=== PATIENT | female | born 1980 | race Hispanic/Latino ===

== ENCOUNTER 2017-02-10 06:57 | Day surgery (SDC) | payer SELFPAY ==
[2017-02-10 07:12] VITALS: BMI 25.3
[2017-02-10] MEDS ORDERED: Bupivacaine 0.5% Inj(30mL) ONE (07:27)
[2017-02-10] MEDS ORDERED: ceFAZolin IV 1 gm in Dextrose 2 GM/100 ML BAG IVPB ONE (07:27)
[2017-02-10] MEDS ORDERED: Silver Nitrate Topical - Stick ONE (07:28)
[2017-02-10 07:40] LABS: BASO % 0.8 % (0.0-2.0); EOS # 0.1 K/uL (0.0-0.7); HEMOGLOBIN 13.5 g/dL (12.0-16.0); LYMPH # 2.6 K/uL (1.0-4.3); LYMPH % 45.9 % (20.0-40.0); MEAN CELL VOLUME 92.3 fl (81.0-99.0); MEAN CORPUSCULAR HEMOGLOBIN 30.6 pg (27.0-31.0); MEAN CORPUSCULAR HGB CONC 33.2 g/dL (33.0-37.0); MEAN PLATELET VOLUME 8.6 fl (7.2-11.7); MONO # 0.3 K/uL (0.0-0.8); NEUT # 2.6 K/uL (1.8-7.0); NEUT % 45.3 % (50.0-75.0); NRBC % 0.1 % (0.0-0.0); RBC 4.41 Mil/uL (3.80-5.20); RED CELL DISTRIBUTION WIDTH 14.9 % (11.5-14.5); WHITE BLOOD COUNT 5.8 K/uL (4.8-10.8)
[2017-02-10] MEDS ORDERED: Lactated Ringer's 1,000 ML IV ONE ×3 (08:00→10:15)
[2017-02-10 08:05] VITALS: RESP 18
[2017-02-10] MEDS ORDERED: Propofol 10 mg/ml Inj (20 ML) ONE (08:18)
[2017-02-10] MEDS ORDERED: Lidocaine 4% (Laryng-O-Jet) Kit MM ONE (08:19)
[2017-02-10] MEDS ORDERED: Succinylcholine 200 mg/10 ml Inj IV ONE (08:19)
[2017-02-10] MEDS ORDERED: Rocuronium 10 mg/ml (5 ml) ONE (08:19)
[2017-02-10] MEDS ORDERED: Midazolam 2 MG/2 ML VIAL ONE ×2 (08:19→08:53)
[2017-02-10] MEDS ORDERED: ePHEDrine 50 mg/ml Inj ONE ×4 (08:19→10:04)
[2017-02-10] MEDS ORDERED: Dexamethasone 4 mg/1 ml ONE (09:37)
[2017-02-10] MEDS ORDERED: Neostigmine Methylsulfate 3mg/3ml Syringe IV ONE (10:11)
[2017-02-10] MEDS ORDERED: Oxycodone/Acetaminophen 5/325 mg Tab PO PRN (10:36)
[2017-02-10] MEDS ORDERED: Lactated Ringer's 1,000 ML IV SCH (10:45)
[2017-02-10] MEDS ORDERED: Acetaminophen-Codeine 300/30 mg Tab PO PRN (11:25)
[2017-02-10] MEDS ORDERED: DiphenhydrAMINE 50 mg/ml Inj IVPB STA (12:25)
[2017-02-10] MEDS ORDERED: DiphenhydrAMINE 50 mg/ml Inj IVPB ONE (12:40)
[2017-02-10 14:15] VITALS: BP 108/67; PULSE 77; TEMP 97.5; O2SAT 996
--- NOTE | 2017-02-12 09:28 | PCM.OP ---
Operative Report - Operative Report Date of Surgery/Procedure: 02/10/17 Time of Surgery/Procedure: 08:00 Surgeon: Dr. Edwin Frankel Bull Ladle Tender: Dr. Timmy Zeng Anesthesia/Sedation: general/Dr. Olsen Pre-Operative Diagnosis: Incarcerated Incisional hernia. Endometriosis Post-Operative Diagnosis: Incarcerated incisional hernia Indication for Surgery: incarcerated incisional hernia Operative Findings: as above Procedure/Operation Description: 1-Repair incarcerated incisinal hernia. Brief History: Dr. Zeng had noted just prior to surgery a deformity in the abdomijnal wall consistent with incarcerated incisional hernia at the previous incision site. Intraoperative genreal surgery consultatioin was requested. Description of the Procedure: The patient had already been brought to the operating room and after induction of endotracheal anesthesia the defect in the abdominal wall was noted. An icision was made into the skin and subcutaneous tissue and the peritoneum was entered and the bowel lysed from the abdomial wall. The robotic trocars were placed and Dr. Zeng proceeded with the operation (deparate dictation Dr. Zeng). When he completed the procedure the fascia surrounding the incisional hernia was developed circumferentially in ordeer to palce the future mesh. Staticce (pig skin) biologic mesh was plced into the defect and sutured with multiple 0 PDS sutures in a "U" fashion as to place the mesh as an underlay repair. With this completed the fascia above the mesh was closed with 3-0 vicryl sutures and the ranjit-umbilicus was formed with a stay suture of 3-0 vivryl. The skin was closed with continuous 4-0 monocryl. A clean dressing was applied. The operation was then turned over to Dr. Zeng ( separat dictsation Dr. Zeng). Estimated Blood Loss: 5 cc Complications: none Discharge & Condition: stable
--- NOTE | 2017-03-03 09:34 | OP ---
PROCEDURE DATE: 02/10/2017 SURGEON: Timmy Zeng MD DRAPERY AND UPHOLSTERY MEASURER: Jostin Pineda ANESTHESIOLOGIST: Lindsey Olsen MD ANESTHETIC: General Endo PREOPERATIVE DIAGNOSES: PROVIDES POSTOPERATIVE DIAGNOSES: PROVIDES PROCEDURE PERFORMED: Davinci Endometriosis, Hysteroscopy, Cysto w/ Bilateral Urethral Stenting and Dye Injection, Repair Of Incarcerated Incisional Hernia w/ Mesh (Cystoscopy with bilateral urethral catheterization, retrograde injection of indocyanine green in the right and left ureter, diagnostic hysteroscopy, laparoscopy, robotic da Santiago, excision of endometriosis, ablation of endometriosis, and bilateral ureterolysis. There is a lysis of adhesion to be dictated separately by Dr. Edwin Frankel) COMPLICATIONS: None. SAMPLES: Sent to pathology. DRAINS: Best catheter. ESTIMATED BLOOD LOSS: Minimal. HISTORY: PROVIDES HISTORY DESCRIPTION OF PROCEDURE: After the consent was obtained, the patient was brought to the operating room and placed on the operating table in the dorsal supine position. An intravenous catheter was started; antibiotics were administered. After satisfactory anesthesia was induced, the patient was then positioned in dorsal lithotomy position, and every area prone to pressure was padded. The external genitalia in the abdomen was sterilely prepped and draped in the standard fashion and a time out was performed. At this point, the cystoscope was introduced in the bladder under direct vision, a johnson-cystoscopy was performed and attention was paid to both ureteral orifices, which were in a normal anatomical position. The left ureteral orifice was then catheterized with a Burkinan open ending ureteral catheter. A solution of indocyanine green of 5 mL was injected into the left ureter and after the ureteral catheter was advanced into the distal ureter. The ureteral catheter was then removed. Attention was paid to the right ureteral orifice and at this point, a urethral catheter was advanced to the level of the right distal ureter. An additional 4 mL of indocyanine green were injected into the right ureter. The ureteral catheter was then removed. The bladder was then inspected and noted to be free of tumors, stones, or bleeding sources. The cystoscope was then removed and a 16 Burkinan Best catheter was placed. At this point, attention was turned to the vaginal area, where a speculum was placed in the vagina. The anterior lip of the cervix was grasped. The uterus was dilated and the hysteroscope was inserted in the uterine cavity revealing a normal size cavity with both ureters also being visualized. At this point, the hysteroscope was removed, and a Valtchev uterine manipulator was placed in the uterus, and the attention was turned to the abdomen. An incision was made below the umbilicus with a standard open laparoscopy technique. The abdominal cavity was then entered in a blunt fashion. Under direct visualization, additional trocars were inserted, left upper quadrant, right upper quadrant, and mid quadrant. At this point, the da Santiago robot was brought on to the field and it was docked. The findings were followed. There were multiple areas which were slightly erythematous suggestive of endometriosis, mostly in the posterior cervix and the right and the left pelvic side wall. There were adhesions between the sigmoid colon and the descending colon attaching the concerning colon to the left pelvic sidewall impeding the complete vision on the left pelvic side. Dr. Edwin Frankel from General Surgery was called in and he took down those adhesions. He will dictate this part separately. At this point, after we were able to see both sides, the ovaries were inspected and appearing to be normal and tubes were also inspected. Attention was on the left-hand side where the fluorescent technology was used to identify the ureter on the left-hand side. The peritoneum overlying the ureter was picked up, it was lifted utilizing a surgical grasper and the retroperitoneal space was entered. The ureter was gently dissected off and the area of peritoneum was sent to pathology, dissected in toto. Similarly, on the right-end side after examined the right ovarian tube, again, the right ureter was identified. The peritoneum overlying the right ureter was elevated. The retroperitoneal space was entered and the wide area of peritoneum was also excised with a partial pelvic sidewall peritonectomy being performed. At this point, we checked with fluorescence for both ureters, they are appeared to be in perfect condition. A peritoneum was also excised from the posterior cervical area. Area suspicious for superficial endometriosis was bipolar coagulated in the posterior cul-de- sac. At this point, it was checked for hemostasis, and appeared to be excellent. The pelvis was irrigated. The ureter appeared to be in excellent condition and intact and undamaged. The bowel was also in perfect condition. At this point, the robot was undocked, the abdomen was desufflated, the instruments were removed. The incisions were closed in layers with 0 PDS for the fascia. The skin was closed with 4-0 Monocryl and a surgical glue. All the instruments were removed from the vagina. The cervix was inspected and appeared to be in excellent condition. Atthis point, the patient was woken up and taken to the recovery room in excellent condition. Timmy Zeng MD [facility] FACILITYJulieth
== END 2017-02-10 14:45 | disposition home or self-care (01) ==
LOC: H.OPSURG 06:57
PROVIDERS: ATTEND Obstetrics & Gynecology Reproductive Endocrinology
DX: N80.0 Endometriosis of uterus (principal); E03.9 Hypothyroidism, unspecified; K43.0 Incisional hernia with obstruction, without gangrene
CPT/HCPCS: 36415; 49655; 52332; 58563; 58662; 85025; 86850; 86900; 88305; C1729; J0330; J0690; J1100; J1170; J1200; J2001; J2250; J2405; J2704; J2710; J3010; J7030; J7120; Q4130